=== PATIENT | female | born 1980 | race Caucasian/White ===

== ENCOUNTER → 2017-10-19 | Outpatient (CLI) | payer OTHER ==
[~2017-10-19] MED LIST: ANTIVERT/2525 MG PO; BENTYL10 MG PO; CEFDINIR250 MG/5 M PO; CIPRO500 MG PO; MEDROL DOSEPAK4 MG PO; NAPROSYN500 MG PO; NAPROXEN250 MG PO; NKHM; PERCOCET 325 MG1 TA2 PO; PERCOCET 325 MG1 TA7 PO; PREDNISONE10 MG PO; TOPIRAMATE50 M2 PO; TYLENOL WITH CO1 TAB PO; VICODIN ES 7501 TAB PO; ZOFRAN ODT4 MG SL
== END | disposition home or self-care (01) ==
LOC: MRI 08:48
DX: H53.8 Other visual disturbances (principal); R51 Headache; H57.10 Ocular pain, unspecified eye

== ENCOUNTER → 2017-10-30 | Outpatient (CLI) | payer OTHER | END | disposition home or self-care (01) | LOC: US 13:28 | DX: I65.23 Occlusion and stenosis of bilateral carotid arteries (principal); G43.809 Other migraine, not intractable, without status migrainosus; R25.1 Tremor, unspecified ==

== ENCOUNTER → 2018-07-06 | Outpatient (CLI) | payer OTHER ==
[2018-07-06 12:59] LABS: BASO % 0.4 % (0.0-1.0); EOS # 0.1 10*3/uL (0.0-0.4); EOS % 0.6 % (1.0-4.0); HEMATOCRIT 46.9 % (37.0-47.0); HEMOGLOBIN 14.9 g/dl (12.0-16.0); LYMPH # 1.8 10*3/uL (1.3-4.4); LYMPH % 19.7 % (27.0-41.0); MEAN CELL VOLUME 83.2 fl (81.0-99.0); MEAN CORPUSCULAR HGB 26.4 pg (27.0-31.0); MEAN CORPUSCULAR HGB CONC 31.8 g/dl (33.0-37.0); MEAN PLATELET VOLUME 10.9 fl (9.6-12.3); MONO # 0.6 10*3/uL (0.1-1.0); MONO % 6.2 % (3.0-9.0); NEUT # 6.8 10*3/uL (2.3-7.9); PLATELET COUNT AUTOMATED 244 10*3/uL (130-400); RED BLOOD COUNT 5.64 10*6/uL (4.10-5.10); WHITE BLOOD COUNT 9.3 10*3/uL (4.8-10.8)
[2018-07-06 13:24] LABS: ALBUMIN 4.2 gm/dl (3.1-4.5); ALKALINE PHOSPHATASE 68 U/L (45-117); BILIRUBIN, DIRECT < 0.1 mg/dL (0.0-0.2); FREE T4 1.08 ng/dl (0.76-1.46); SGOT/AST 17 IU/L (3-35); SGPT/ALT 20 U/L (12-78); TOTAL PROTEIN 8.4 gm/dL (6.4-8.2)
[2018-07-06 13:30] LABS: THYROID STIM HORMONE (HS) 0.006 uIU/ml (0.358-4.75)
[2018-07-09 16:07] LABS: THYROID STIM IMMUNOGLOBULIN 3.23 IU/L (0.00-0.55)
== END | disposition home or self-care (01) ==
LOC: LAB 12:26
PROVIDERS: Internal Medicine
DX: E55.9 Vitamin D deficiency, unspecified (principal); R94.6 Abnormal results of thyroid function studies

== ENCOUNTER → 2019-03-11 | Outpatient (CLI) | payer OTHER ==
[2019-03-11 12:06] LABS: BASO # 0.1 10*3/uL (0.0-0.1); BASO % 0.9 % (0.0-1.0); EOS # 0.2 10*3/uL (0.0-0.4); EOS % 2.5 % (1.0-4.0); HEMATOCRIT 45.4 % (37.0-47.0); HEMOGLOBIN 14.6 g/dl (12.0-16.0); LYMPH # 2.6 10*3/uL (1.3-4.4); LYMPH % 37.9 % (27.0-41.0); MEAN CELL VOLUME 82.7 fl (81.0-99.0); MEAN CORPUSCULAR HGB 26.6 pg (27.0-31.0); MEAN CORPUSCULAR HGB CONC 32.2 g/dl (33.0-37.0); MEAN PLATELET VOLUME 10.8 fl (9.6-12.3); MONO # 0.5 10*3/uL (0.1-1.0); MONO % 7.6 % (3.0-9.0); NEUT # 3.5 10*3/uL (2.3-7.9); PLATELET COUNT AUTOMATED 268 10*3/uL (130-400); RED BLOOD COUNT 5.49 10*6/uL (4.10-5.10); RED CELL DISTRI WIDTH 12.9 % (0-14.5); WHITE BLOOD COUNT 6.8 10*3/uL (4.8-10.8)
[2019-03-11 12:25] LABS: ALBUMIN 4.5 gm/dl (3.1-4.5); ALKALINE PHOSPHATASE 63 U/L (45-117); BILIRUBIN, DIRECT < 0.1 mg/dL (0.0-0.2); FREE T4 0.91 ng/dl (0.76-1.46); IRON 112 ug/dL (50-170); SGOT/AST 18 IU/L (3-35); SGPT/ALT 16 U/L (12-78); TOTAL PROTEIN 8.4 gm/dL (6.4-8.2)
[2019-03-11 12:31] LABS: THYROID STIM HORMONE (HS) 0.483 uIU/ml (0.358-4.75)
== END | disposition home or self-care (01) ==
LOC: LAB 11:35
PROVIDERS: Internal Medicine
DX: E55.9 Vitamin D deficiency, unspecified (principal); E61.1 Iron deficiency; R94.6 Abnormal results of thyroid function studies

== ENCOUNTER → 2019-09-09 | Outpatient (CLI) | payer OTHER | END | disposition home or self-care (01) | LOC: US 16:24 | DX: R10.13 Epigastric pain (principal) ==

== ENCOUNTER → 2020-05-11 | Outpatient (CLI) | payer OTHER ==
[2020-05-11 13:50] LABS: BASO % 0.4 % (0.0-1.0); EOS # 0.1 10*3/uL (0.0-0.4); EOS % 1.4 % (1.0-4.0); LYMPH # 2.6 10*3/uL (1.3-4.4); LYMPH % 37.2 % (27.0-41.0); MEAN CELL VOLUME 84.7 fl (81.0-99.0); MEAN CORPUSCULAR HGB 26.4 pg (27.0-31.0); MEAN CORPUSCULAR HGB CONC 31.1 g/dl (33.0-37.0); MEAN PLATELET VOLUME 10.8 fl (9.6-12.3); MONO # 0.4 10*3/uL (0.1-1.0); MONO % 6.2 % (3.0-9.0); NEUT # 3.8 10*3/uL (2.3-7.9); NEUT % 54.7 % (47.0-73.0); PLATELET COUNT AUTOMATED 282 10*3/uL (130-400); RED BLOOD COUNT 5.31 10*6/uL (4.10-5.10); RED CELL DISTRI WIDTH 12.9 % (0-14.5); WHITE BLOOD COUNT 6.9 10*3/uL (4.8-10.8)
[2020-05-11 14:35] LABS: ALKALINE PHOSPHATASE 53 U/L (45-117); BUN 11 mg/dl (7-24); CHLORIDE 108 mmol/L (98-107); CREATININE 0.52 mg/dL (0.55-1.02); POTASSIUM 3.7 mmol/L (3.5-5.1); SGOT/AST 18 IU/L (3-35); SGPT/ALT 15 U/L (12-78); SODIUM 136 mmol/L (136-145); TOTAL PROTEIN 8.1 gm/dL (6.4-8.2)
[2020-05-12 16:12] LABS: t-TRANSGLUTAMINASE (tTG) IGA <2 U/mL (0-3); t-TRANSGLUTAMINASE (tTG) IgG 4 U/mL (0-5)
== END | disposition home or self-care (01) ==
LOC: LAB 13:06
PROVIDERS: ATTEND Nurse Practitioner Family
DX: R19.7 Diarrhea, unspecified (principal); R10.9 Unspecified abdominal pain